=== PATIENT | male | born 1940 | race Hispanic/Latino ===

== ENCOUNTER 2017-08-16 09:11 | Inpatient (IN) | payer MEDICARE, OTHER ==
[~2017-08-16] VITALS: Wt 69.9 kg
[2017-08-16] VITALS (16 sets, daily range): BP systolic 94–144; BP diastolic 50–77
[2017-08-16 10:02] LABS: HEMOGLOBIN 16.9 g/dl (14.0-18.0); IMMATURE GRANULOCYTES 0.5 % (0.0-1.0); MEAN CORPUSCULAR HGB 28.9 pG CALC (26.0-32.0); MEAN CORPUSCULAR HGB CONC 30.7 g/L CALC (32.0-36.0); NEUT# 9.78 thou/uL (1.82-7.42); RED BLOOD COUNT 5.85 mill/uL (4.70-6.10); RED CELL DISTRI WIDTH 14.2 % (11.5-15.5)
[2017-08-16 10:20] LABS: ALBUMIN 3.4 g/dL (3.2-5.0); BILIRUBIN, TOTAL 1.4 mg/dL (0.0-1.4); CALCIUM 9.3 mg/dL (8.4-10.2); CREATININE 1.7 mg/dL (0.7-1.3); POTASSIUM 4.3 mmol/l (3.5-5.1); TOTAL PROTEIN 6.6 g/dL (6.3-8.2)
[2017-08-16 10:21] LABS: INTERNATIONAL NORMALIZED RATIO 1.2 RATIO (0.7-1.3); PROTHROMBIN TIME 13.4 SECONDS (9.0-12.5)
[2017-08-16] MEDS ORDERED: MULTI VIT PO (11:04)
[2017-08-16] MEDS ORDERED: MEDDOSEPAK PO (11:04)
[2017-08-16] MEDS ORDERED: MUCINEX600 MG PO (11:05)
[2017-08-16] MEDS ORDERED: [UNRECOGNIZED DRUG - OTHER] PO (11:06)
[2017-08-16] MEDS ORDERED: MILK OF MAG30 ML/UDC PO (11:07)
[2017-08-16 13:40] LABS: URINE BLOOD DIPSTICK TRACE-LYSED (NEGATIVE); URINE GLUCOSE - DIPSTICK NEGATIVE (NEGATIVE); URINE KETONE TRACE mg/dL (NEGATIVE); URINE LEUK ESTERASE NEGATIVE (NEGATIVE); URINE NITRITE - DIPSTICK NEGATIVE (Negative); URINE PROTEIN - DIPSTICK TRACE mg/dL (NEG-TRACE); URINE SPECIFIC GRAVITY >=1.030
[2017-08-16 13:44] LABS: URINE BILIRUBIN - DIPSTICK SMALL (NEGATIVE); URINE CLARITY SL CLOUDY; URINE COLOR DK. YELLOW
[2017-08-16 14:00] LABS: CREATININE 1.4 mg/dL (0.7-1.3); POTASSIUM 3.5 mmol/l (3.5-5.1)
[2017-08-16 15:23] LABS: BUN 60 mg/dL (8-23); BUN/CREATININE RATIO 48 (12-20 (CALC)); CALCIUM 7.8 mg/dL (8.4-10.2); CARBON DIOXIDE 16 mmol/l (22-30); CREATININE 1.3 mg/dL (0.7-1.3); GFR 53 ML/MIN (>=60 (CALC)); GFR FOR AFR.AMER. > 60 ML/MIN (>=60 (CALC)); GLUCOSE 185 mg/dL (82-115); POTASSIUM 3.4 mmol/l (3.5-5.1)
[2017-08-16 15:28] LABS: ANION GAP 15 (6-22 (CALC)); CHLORIDE 145 mmol/l (95-108); SODIUM 173 mmol/l (137-146)
[2017-08-16 17:41] LABS: BUN 59 mg/dL (8-23); BUN/CREATININE RATIO 49 (12-20 (CALC)); CALCIUM 7.8 mg/dL (8.4-10.2); CARBON DIOXIDE 17 mmol/l (22-30); CREATININE 1.2 mg/dL (0.7-1.3); GFR 59 ML/MIN (>=60 (CALC)); GFR FOR AFR.AMER. > 60 ML/MIN (>=60 (CALC)); GLUCOSE 274 mg/dL (82-115); POTASSIUM 3.1 mmol/l (3.5-5.1)
[2017-08-16 17:43] LABS: ANION GAP 16 (6-22 (CALC)); CHLORIDE 142 mmol/l (95-108); SODIUM 172 mmol/l (137-146)
[2017-08-16 20:27] LABS: BUN 59 mg/dL (8-23); BUN/CREATININE RATIO 47 (12-20 (CALC)); CARBON DIOXIDE 18 mmol/l (22-30); CREATININE 1.3 mg/dL (0.7-1.3); GFR 53 ML/MIN (>=60 (CALC)); GFR FOR AFR.AMER. > 60 ML/MIN (>=60 (CALC)); GLUCOSE 327 mg/dL (82-115); POTASSIUM 3.2 mmol/l (3.5-5.1)
[2017-08-16 20:29] LABS: ANION GAP 17 (6-22 (CALC)); CHLORIDE 139 mmol/l (95-108); SODIUM 171 mmol/l (137-146)
[2017-08-16 23:31] LABS: BUN 60 mg/dL (8-23); BUN/CREATININE RATIO 48 (12-20 (CALC)); CALCIUM 7.9 mg/dL (8.4-10.2); CREATININE 1.2 mg/dL (0.7-1.3); GFR 59 ML/MIN (>=60 (CALC)); GFR FOR AFR.AMER. > 60 ML/MIN (>=60 (CALC)); GLUCOSE 306 mg/dL (82-115); POTASSIUM 3.8 mmol/l (3.5-5.1)
[2017-08-16 23:36] LABS: ANION GAP 14 (6-22 (CALC))
[2017-08-16 23:37] LABS: CARBON DIOXIDE 18 mmol/l (22-30); CHLORIDE 139 mmol/l (95-108); SODIUM 167 mmol/l (137-146)
[2017-08-17] VITALS (21 sets, daily range): BP systolic 97–143; BP diastolic 47–75
[2017-08-17 05:30] LABS: ALBUMIN 2.5 g/dL (3.2-5.0); BUN 60 mg/dL (8-23); CALCIUM 8.3 mg/dL (8.4-10.2); CARBON DIOXIDE 17 mmol/l (22-30); CREATININE 1.3 mg/dL (0.7-1.3); GFR 53 ML/MIN (>=60 (CALC)); GFR FOR AFR.AMER. > 60 ML/MIN (>=60 (CALC)); GLUCOSE 226 mg/dL (82-115); POTASSIUM 3.4 mmol/l (3.5-5.1)
[2017-08-17 05:31] LABS: CHLORIDE 138 mmol/l (95-108); SODIUM 167 mmol/l (137-146)
[2017-08-18] VITALS (11 sets, daily range): BP systolic 103–164; BP diastolic 47–75
[2017-08-18 05:17] LABS: HEMATOCRIT 39.9 % (39.0-50.0); HEMOGLOBIN 12.3 g/dl (14.0-18.0); IMMATURE GRANULOCYTES 0.6 % (0.0-1.0); MEAN CELL VOLUME 93.9 fL CALC (80.0-100.0); MEAN CORPUSCULAR HGB 28.9 pG CALC (26.0-32.0); MEAN CORPUSCULAR HGB CONC 30.8 g/L CALC (32.0-36.0); NEUT# 12.78 thou/uL (1.82-7.42); RED BLOOD COUNT 4.25 mill/uL (4.70-6.10); RED CELL DISTRI WIDTH 14.1 % (11.5-15.5)
[2017-08-18 05:35] LABS: ALBUMIN 2.3 g/dL (3.2-5.0); BUN 47 mg/dL (8-23); CALCIUM 8.4 mg/dL (8.4-10.2); CARBON DIOXIDE 20 mmol/l (22-30); CHLORIDE 130 mmol/l (95-108); CREATININE 0.9 mg/dL (0.7-1.3); GFR > 60 ML/MIN (>=60 (CALC)); GFR FOR AFR.AMER. > 60 ML/MIN (>=60 (CALC)); GLUCOSE 120 mg/dL (82-115); POTASSIUM 3.5 mmol/l (3.5-5.1); SODIUM 158 mmol/l (137-146)
[2017-08-19] VITALS (10 sets, daily range): BP systolic 105–150; BP diastolic 53–78
[2017-08-19 05:43] LABS: HEMATOCRIT 38.4 % (39.0-50.0); HEMOGLOBIN 12.4 g/dl (14.0-18.0); IMMATURE GRANULOCYTES 1.4 % (0.0-1.0); MEAN CELL VOLUME 89.9 fL CALC (80.0-100.0); MEAN CORPUSCULAR HGB CONC 32.3 g/L CALC (32.0-36.0); NEUT# 10.18 thou/uL (1.82-7.42); RED BLOOD COUNT 4.27 mill/uL (4.70-6.10); RED CELL DISTRI WIDTH 13.6 % (11.5-15.5)
[2017-08-19 05:54] LABS: BUN 25 mg/dL (8-23); BUN/CREATININE RATIO 32 (12-20 (CALC)); CALCIUM 8.1 mg/dL (8.4-10.2); CARBON DIOXIDE 19 mmol/l (22-30); CHLORIDE 118 mmol/l (95-108); CREATININE 0.8 mg/dL (0.7-1.3); GFR > 60 ML/MIN (>=60 (CALC)); GFR FOR AFR.AMER. > 60 ML/MIN (>=60 (CALC)); GLUCOSE 108 mg/dL (82-115); MAGNESIUM 2.3 mg/dL (1.6-2.3); POTASSIUM 3.3 mmol/l (3.5-5.1)
[2017-08-19 05:56] LABS: ANION GAP 11 (6-22 (CALC)); SODIUM 145 mmol/l (137-146)
[2017-08-20] VITALS (7 sets, daily range): BP systolic 95–128; BP diastolic 45–61
[2017-08-20 04:47] LABS: HEMATOCRIT 37.5 % (39.0-50.0); HEMOGLOBIN 12.3 g/dl (14.0-18.0); MEAN CELL VOLUME 88.7 fL CALC (80.0-100.0); MEAN CORPUSCULAR HGB 29.1 pG CALC (26.0-32.0); MEAN CORPUSCULAR HGB CONC 32.8 g/L CALC (32.0-36.0); RED BLOOD COUNT 4.23 mill/uL (4.70-6.10); RED CELL DISTRI WIDTH 13.3 % (11.5-15.5)
[2017-08-20 05:06] LABS: BUN 18 mg/dL (8-23); CALCIUM 7.8 mg/dL (8.4-10.2); CARBON DIOXIDE 20 mmol/l (22-30); CHLORIDE 120 mmol/l (95-108); CREATININE 0.7 mg/dL (0.7-1.3); GFR > 60 ML/MIN (>=60 (CALC)); GFR FOR AFR.AMER. > 60 ML/MIN (>=60 (CALC)); GLUCOSE 95 mg/dL (82-115); POTASSIUM 3.4 mmol/l (3.5-5.1); SODIUM 147 mmol/l (137-146)
[2017-08-21 04:59] VITALS: BP 137/58
[2017-08-21 05:33] LABS: ANION GAP 11 (6-22 (CALC)); BUN 17 mg/dL (8-23); BUN/CREATININE RATIO 24 (12-20 (CALC)); CALCIUM 8.2 mg/dL (8.4-10.2); CARBON DIOXIDE 21 mmol/l (22-30); CHLORIDE 117 mmol/l (95-108); CREATININE 0.7 mg/dL (0.7-1.3); GFR > 60 ML/MIN (>=60 (CALC)); GFR FOR AFR.AMER. > 60 ML/MIN (>=60 (CALC)); GLUCOSE 100 mg/dL (82-115); POTASSIUM 3.5 mmol/l (3.5-5.1); SODIUM 146 mmol/l (137-146)
[2017-08-21 07:07] LABS: HEMATOCRIT 39.1 % (39.0-50.0); HEMOGLOBIN 12.3 g/dl (14.0-18.0); IMMATURE GRANULOCYTES 1.7 % (0.0-1.0); MEAN CORPUSCULAR HGB 28.9 pG CALC (26.0-32.0); MEAN CORPUSCULAR HGB CONC 31.5 g/L CALC (32.0-36.0); NEUT# 10.25 thou/uL (1.82-7.42); RED BLOOD COUNT 4.25 mill/uL (4.70-6.10); RED CELL DISTRI WIDTH 13.6 % (11.5-15.5)
[2017-08-21 08:06] VITALS: BP 137/62
[2017-08-21 11:14] VITALS: BP 133/59
[2017-08-21] MEDS ORDERED: AUGMENTIN875TAB PO (12:13)
[2017-08-21 15:00] VITALS: BP 117/52
== END 2017-08-21 15:08 | DRG 177 ==
LOC: ED 09:11 → ED-I 09:41 → ED 09:41 → ED-I 10:24 → ED 11:09 → ICU 11:10 → MS2 08-20 17:38
PROVIDERS: Emergency Medicine; Internal Medicine; Internal Medicine Nephrology; Nurse Practitioner Family; ADMIT Internal Medicine; ATTEND Internal Medicine
PROC: 0T9B70Z Drainage of Bladder with Drainage Device, Via Natural or Artificial Opening (ICD-10-PCS; principal; 2017-08-16)
PROC: 3E0234Z Introduction of Serum, Toxoid and Vaccine into Muscle, Percutaneous Approach (ICD-10-PCS; 2017-08-17)
DX: J69.0 Pneumonitis due to inhalation of food and vomit (principal); G93.41 Metabolic encephalopathy; N17.9 Acute kidney failure, unspecified; E87.0 Hyperosmolality and hypernatremia; R13.10 Dysphagia, unspecified; E87.8 Other disorders of electrolyte and fluid balance, not elsewhere classified; E86.0 Dehydration; F03.90 Unspecified dementia, unspecified severity, without behavioral disturbance, psychotic disturbance, mood disturbance, and anxiety; R00.1 Bradycardia, unspecified; R09.02 Hypoxemia; Z23 Encounter for immunization; Z66 Do not resuscitate